=== PATIENT | female | born 1965 | race Caucasian/White ===

== ENCOUNTER 2022-12-14 08:40 | Outpatient (CLI) | payer OTHER, SELFPAY ==
--- NOTE | 2022-12-14 08:45 | CRLHL7_ITS ---
For Patients: As a result of the Century Cures Act, medical imaging exams and procedure reports are released immediately into your electronic medical record. You may view this report before your referring provider. If you have questions, please contact your health care provider. INDICATION: PELVIC PAIN COMPARISON: none TECHNIQUE: 2D castillo scale and color Doppler images were acquired of the pelvis using a transabdominal and transvaginal approach. FINDINGS: Sonographic images demonstrate a normal size and lobular outer contour of the uterus. Uterus measures 7.6 cm in length by 4.2 cm in AP diameter by 4.5 cm in transverse dimension. There is an intramural uterine fibroid present in the mid uterus which is partially exophytic and measures 2.8 x 2.5 x 2.4 cm. A smaller intramural fibroid is also present in the uterine fundus measuring 1.2 x 1.1 x 1.2 cm. The endometrium measures 3 millimeters. A small endometrial cyst is noted measuring 4 x 3 x 6 millimeters. The ovaries are not visualized. There are no suspicious fluid collections within the cul-de-sac. IMPRESSION: Uterine fibroids are present measuring 2.8 cm and 1.2 cm. 6 millimeter cyst associated with the posterior fundal endometrium. Endometrial thickness 3 millimeters. Dictated by Jb Benjamin MD @ 12/14/2022 9:56:04 AM (Electronically Signed)
== END 2022-12-14 08:41 | disposition home or self-care (01) ==
LOC: US 08:41
PROVIDERS: Visit Provider Obstetrics & Gynecology
DX: R10.2 Pelvic and perineal pain (principal); D25.9 Leiomyoma of uterus, unspecified; N80.109 Endometriosis of ovary, unspecified side, unspecified depth
CPT/HCPCS: 76830; 76856

== ENCOUNTER 2023-03-20 08:34 | Outpatient (CLI) | payer OTHER, SELFPAY | END 2023-03-20 08:35 | disposition home or self-care (01) | PROVIDERS: Visit Provider Family Medicine | DX: Z00.00 Encounter for general adult medical examination without abnormal findings (principal); I10 Essential (primary) hypertension; Z13.6 Encounter for screening for cardiovascular disorders | CPT/HCPCS: 80053; 80061 ==

== ENCOUNTER 2023-04-06 08:00 | Outpatient (CLI) | payer OTHER, SELFPAY ==
--- NOTE | 2023-04-06 09:13 | W.ANESCHARGE ---
Anesthesia Charges Start Date/Time Anesthesia Start Date: 04/06/23 Anesthesia Start Time: 08:55 Stop Date/Time Anesthesia Stop Date: 04/06/23 Anesthesia Stop Time: 09:10
== END 2023-04-06 08:01 | disposition home or self-care (01) ==
LOC: OP CLINIC 08:01
PROVIDERS: PCP Family Medicine; Visit Provider Surgery
DX: R13.10 Dysphagia, unspecified (principal)
CPT/HCPCS: 00731; 43239; 88305; J2704

== ENCOUNTER 2023-11-02 09:45 | Outpatient (CLI) | payer OTHER, SELFPAY | END 2023-11-02 09:46 | disposition home or self-care (01) | PROVIDERS: PCP Family Medicine; Visit Provider Family Medicine | DX: I10 Essential (primary) hypertension (principal); R79.89 Other specified abnormal findings of blood chemistry; Z13.29 Encounter for screening for other suspected endocrine disorder; Z13.220 Encounter for screening for lipoid disorders | CPT/HCPCS: 80053; 80061; 84443 ==

== ENCOUNTER 2024-02-14 09:41 | Outpatient (CLI) | payer OTHER, SELFPAY | END 2024-02-14 09:42 | disposition home or self-care (01) | LOC: NFLDREF 02-16 13:39 | PROVIDERS: PCP Family Medicine; Visit Provider Family Medicine | DX: E78.00 Pure hypercholesterolemia, unspecified (principal); R74.8 Abnormal levels of other serum enzymes | CPT/HCPCS: 80061; 80076 ==